=== PATIENT | female | born 2000 | race Caucasian/White ===

== ENCOUNTER 2024-09-06 17:36 | Observation (INO) | payer MEDICAID, SELFPAY ==
--- NOTE | 2024-09-06 17:43 | XR_ITS ---
Examination: Complete OB ultrasound greater than 14 weeks Date and time of exam: September 06, 2024 1745 hrs. Indications: Labor evaluation, size dates discrepancy Findings: Viable intrauterine single fetus with single amniotic sac presentation cephalic Cardiac motion 136 BPM Placenta anterior grade 2 Umbilical cord insertion seen Amniotic fluid index 9.7 cm Cervix 3.2 cm Ovaries obscured by bowel gas. Composite estimated gestational age based on BPD, head circumference, abdominal circumference, femur length is 33 weeks 6 days Estimated weight 2271.8 g. Survey of intracranial anatomy, spinal anatomy, abdominal anatomy, four-chamber heart performed with no abnormalities identified. Impression: Viable intrauterine gestation 33 weeks 6 days Estimated weight 2271.8 g.
[2024-09-06 17:59] VITALS: BMI 33.1
[2024-09-06 18:37] VITALS: BP 116/65; PULSE 80
== END 2024-09-06 19:57 | disposition home or self-care (01) ==
PROVIDERS: Admitting Provider Nurse Practitioner Women's Health; PCP Physician Assistant; Visit Provider Obstetrics & Gynecology
DX: Z34.03 Encounter for supervision of normal first pregnancy, third trimester (principal); Z3A.36 36 weeks gestation of pregnancy
CPT/HCPCS: 59025; 59899; 76805

== ENCOUNTER 2024-10-03 07:11 | Inpatient (IN) | payer MEDICAID, SELFPAY ==
[2024-10-03] VITALS (203 sets, daily range): BP systolic 107–159; BP diastolic 56–98; PULSE 77–115; RESP 15–98; TEMP 36.4–38.5; O2SAT 91–100; BMI 35.5
[2024-10-03 07:59] LABS: ROM Kit Lot # 57805053; ROM Swab Mixed By: LOEFL; Rupture of Fetal Membranes Positive (Negative); Swb Mxed in Solvent 1 min? Yes
[2024-10-03 09:02] LABS: Collection Type, Urine Clean Catch
[2024-10-03 09:18] LABS: Basophils % (Auto) 0 % (0-2.5); Eosinophils # (Auto) 0.1 Thou/mm3 (0.0-0.5); Eosinophils % (Auto) 1 % (0-10); Hematocrit 36.2 % (36.0-46.0); Hemoglobin 12.8 g/dL (12.0-16.0); Immature Granulocytes % (Auto) 0 % (0-0); Immature Granulocytes Auto 0.04 Thou/mm3 (0.00-0.00); Lymphocytes # (Auto) 1.7 Thou/mm3 (1.0-4.8); Lymphocytes % (Auto) 15 % (10-50); Mean Corpuscular HGB Conc 35.4 g/dl (31.0-37.0); Mean Corpuscular Hemoglobin 30.5 pg (25.0-35.0); Mean Corpuscular Volume 86 fL (80-100); Monocytes % (Auto) 8 % (0-12); Neutrophils # (Auto) 8.7 Thou/mm3 (1.8-7.7); Neutrophils % (Auto) 76 % (37-80); Nucleated Red Blood Cell % 0 /100 WBC (0); Platelet Count 264 Thou/mm3 (140-440); RDW Standard Deviation 41.3 fL (36.4-46.3); White Blood Count 11.5 Thou/mm3 (3.6-11.0)
[2024-10-03 09:49] LABS: Alanine Aminotransferase 9 U/L (10-49); Albumin, Serum 4.2 gm/dL (3.5-5.0); Albumin/Globulin Ratio 1.5 (1.2-2.2); Alkaline Phosphatase 190 U/L (46-116); Anion Gap 9 (7-16); Aspartate Amino Transferase 14 U/L (0-34); BUN/Creatinine Ratio 18 Ratio (12-20); Bilirubin,Total 0.3 mg/dL (0.3-1.2); Blood Urea Nitrogen 9 mg/dL (9-23); Calcium 9.2 mg/dL (8.3-10.6); Calcium (Corrected) 9.2 mg/dL (8.5-10.1); Carbon Dioxide 22.8 mMol/L (20.0-31.0); Chloride 102 mMol/L (98-107); Creatinine (Component) 0.5 mg/dL (0.6-1.3); Estimated Creatinine Clearance 196.1 mL/min (>60); Globulin 2.8 gm/dL (2.3-3.5); Glucose 94 mg/dL (74-106); Osmolality,Calculated 266 (275-295); Potassium 3.8 mMol/L (3.4-5.1); Sodium 134 mMol/L (136-145); Uric Acid 5.9 mg/dL (3.1-7.8); eGFR > 60 See Note
[2024-10-03 09:54] LABS: Syphilis Nonreactive (Nonreactive)
[2024-10-03 10:01] LABS: INR 0.9 (0.9-1.3); Partial Thromboplastin Time 22.9 Seconds (22.0-36.0)
[2024-10-03 10:10] LABS: Fibrinogen 737 mg/dL (175-375)
[2024-10-03] MEDS: RINGERS LACTATED 1000 ML 1,000 ML 125 ML IV ×5 (10:20→21:52)
[2024-10-03 12:38] LABS: Amphetamine/Metham Scrn,Ur OB Negative (Negative); Benzoylecgonine Screen, Ur OB Negative (Negative); Opiate Screen,Urine OB Negative (Negative); THC Screen,Urine OB Negative (Negative)
--- NOTE | 2024-10-03 12:45 | ESHP_ITS ---
Documentation for date of: 10/03/24 OB Labor/Induct. HPI History of Present Illness Chief complaint: 24 y/o 40w 2d presents to L&D in early labor with SROM : 1 Para: 0 Term pregnancies: 0 pregnancies: 0 Living children: 0 History of Abortions: Spontaneous and Elective: 0 History of Vaginal deliveries: 0 History of sections: No BHAVIN: 10/01/24 Gestational Age (weeks): 40 Gestational Age (days): 2 History of present illness: 24 y/o 40w 2d presents to L&D in early labor with SROM, cervix is 2/80/-3 vertex, category 1 tracing. Amnisure is +. GBS is neg. Pt was admitted for rupture membranes. Pt has been uncomplicated. EFW 3000g History of Present Dating criteria: LMP confirmed by 1st trimester US Adequate Care: Yes Ultrasounds: normal 1st trimester US and normal mid trimester US Obstetrical complications: none Medical complications: none Labs Maternal Blood Type: O Pos Labs: Positive: Rubella Titre, Negative: RPR, Hepatitis B, HIV, Chlamydia, Gonorrhea and Group Beta Strep and Unknown: Herpes Type 1, Herpes Type 2 and Covid-19 Review of Systems Review of Systems Systems Reviewed: All systems reviewed, normal except as documented Past Medical History Surgical History SURGICAL: Negative Section Meds Home Medications and Allergies Home Medications ?Medication ?Instructions ?Recorded ?Confirmed ?Type folic acid 1 mg tablet 1 mg PO QDAY 09/06/24 10/03/24 History vit no.95-ferrous 1 tab PO QDAY 09/06/24 10/03/24 History fumarate 28 mg-folic acid 800 mcg tablet () Allergies Allergy/AdvReac Type Severity Reaction Status Date / Time No Known Drug Allergies Allergy Verified 10/03/24 09:45 OB Exam Physical Exam Vital signs: Temp Pulse Resp BP Pulse Ox 97.7 F 85 20 130/74 98 10/03/24 08:05 10/03/24 12:20 10/03/24 08:05 10/03/24 12:20 10/03/24 12:41 Constitutional Constitutional: no acute distress Routine HEENT Exam Head: Present normocephalic and atraumatic Eye: Present EOMI, PERRL and normal accommodation ENT: Present mucous membranes moist Routine Neck Exam Neck: Present supple, full ROM and trachea midline Routine Cardiovascular Exam Cardiovascular: Present RRR Routine Abdominal Exam Abdominal: Present soft and normoactive bowel sounds Comments: Gravid Uterus EFW 3000g Routine Exam External: Present normal urethra appearance; Absent lesions Detailed Labor and Delivery Exam Dilation (cm): 2 Effacement (%): 80 Cervix position: mid station: -2 Consistency: soft Presentation: Vertex Membranes: ruptured (SROM) Amniotic fluid: clear Baseline heart rate: 130 monitor accelerations: 15x15 monitor decelerations: None nursing home variability: Moderate (11-25) Contraction frequency (min): 2-3 Contraction intensity: Moderate Routine Extremities Exam Extremities: Present full ROM Routine Back/Spine/Pelvis Exam Back/Spine: Present full ROM Routine Skin Exam Skin: Present intact, dry and warm Routine Neurological Exam Neurological: Present alert, oriented X3 and CN II-XII intact Routine Psychiatric Exam Psychiatric: Present normal affect and normal thought process OB Results Labs 10/03/24 08:40 10/03/24 08:40 Labs: Short CBC 10/03/24 Range/Units 08:40 WBC 11.5 H (3.6-11.0) Thou/mm3 Hgb 12.8 (12.0-16.0) g/dL Hct 36.2 (36.0-46.0) % Plt Count 264 (140-440) Thou/mm3 BMP 10/03/24 08:40 Sodium 134 L Potassium 3.8 Chloride 102 Carbon Dioxide 22.8 BUN 9 Creatinine 0.5 L Glucose 94 Calcium 9.2 Liver Function 10/03/24 Range/Units 08:40 Total Bilirubin 0.3 (0.3-1.2) mg/dL AST 14 (0-34) U/L ALT 9 L (10-49) U/L Alkaline Phosphatase 190 H (46-116) U/L Albumin 4.2 (3.5-5.0) gm/dL OB Assessment & Plan Assessment and Plan (1) Normal labor: Status: Acute (2) Normal first in third trimester: Status: Acute (3) 40 weeks gestation of : Status: Acute Additional Plan Induction method: none Plan: augmentation, anticipate NVD and consult MD seaman Additional Plan Comment: Routine admit orders Consult anesthesia for an epidural Continuous EFM
[2024-10-03 12:55] LABS: Bilirubin,Urine Negative (Negative); Blood,Urine 1+ (Negative); Clarity,Urine Clear (Clear/Hazy); Color,Urine Colorless (Lt Yel-Yel); Glucose, Urine Negative (Negative); Ketones,Urine Negative (Negative); Leukocyte Esterase,Urine Negative (Negative); Nitrite,Urine Negative (Negative); PH,Urine 6.5 (5.0-7.0); Protein,Urine Negative (Neg - Trace); RBC,Urine 1 /hpf (0-3); Specific Gravity,Urine 1.007 (1.001-1.035); Squamous Epithelial Cell,Urine 3 /hpf (0-5); Urobilinogen,Urine Negative mg/dL (0.0-1.0); WBC,Urine 1 /hpf (0-5)
[2024-10-03] MEDS: Ampicillin Inj 2,000 MG in SODIUM CHLORIDE 0.9% (P) 100 ML 200 MG IV (17:00)
--- NOTE | 2024-10-03 19:12 | ESPR_ITS ---
<Statement entered by Blank Weaver MD - 10/04/24 07:31> Patient with diagnosis of chorioamnionitis, receiving IV ampicillin already. Recommended to add gentamycin 5mg/kg IV x1 in addition. FHRT evaluated and Cat I-Cat II. Patient progressing well. Safe to proceed. Blank Weaver MD Documentation for date of: 10/03/24 OB Labor Progress Note Pain Control Pain control: epidural Pelvic Exam Dilation (cm): 7 Effacement (%): 90 station: 0 Amniotic membrane status: Ruptured Contractions Monitor mode: External Contraction frequency: 1-3 Contraction duration: 40-60 Contraction phase: Contraction Contraction intensity: Moderate Status status: Category l Assessment and Plan Assessment: active labor Plan OB labor note: continuous present management Comments: Comfortable with epidural Temp of 101.3 start IV tylenol x1 Add Gentamycin Continue Abx Anticipate Dr. Weaver updated
[2024-10-03] MEDS: ACETAMINOPHEN IVPB 1,000 MG/100 ML VIAL 250 MG IV (19:32)
[2024-10-03] MEDS: Ampicillin Inj 1,000 MG in SODIUM CHLORIDE 0.9% (P) 50 ML 100 MG IV (22:40)
[2024-10-04] VITALS (63 sets, daily range): BP systolic 126–180; BP diastolic 68–104; PULSE 68–173; RESP 16–19; TEMP 36.6–37.7; O2SAT 86–100
[2024-10-04] MEDS: MINERAL OIL 30 ML UDC TOP (01:50)
[2024-10-04] MEDS: BENZO/LANO/ALOE (Dermoplast) 60 GM CAN 1 SPRAY TOP (02:00)
[2024-10-04] MEDS: OXYTOCIN in NS 20 units 20 UNIT/1,000 ML BAG 125 UNIT IV (02:00)
--- NOTE | 2024-10-04 02:14 | PD.LDDS ---
DS: Providers Provider Date of admission: 10/03/24 08:39 Primary care physician: Physician No Primary/Family Admitting Provider: Lulu Caldera CNM Attending Provider on Admission: Blank Weaver MD Attending Provider on DC: Lulu Caldera CNM Discharging Provider: Lulu Caldera CNM Anticipated date of discharge: 10/05/24 DS: Diagnosis Discharge Diagnosis (1) Normal spontaneous vaginal delivery: Status: Acute (2) Encounter for care of lactating mother: Status: Acute (3) Normal labor: Status: Acute (4) 40 weeks gestation of : Status: Acute (5) Normal first in third trimester: Status: Acute Problem List Completed Was Problem List Reviewed/Reconciled?: Yes Summary/Hosp Course Brief History: 24 y/o 40w 2d presents to L&D in early labor with SROM, cervix is 2/80/-3 vertex, category 1 tracing. Amnisure is +. GBS is neg. Pt was admitted for rupture membranes. Pt has been uncomplicated. EFW 3000g 10/04/24: Patient pushed for about an hour and head delivered with a tight nuchal cord which was reduced infant was also in compound presentation with the left posterior arm delivered first and patient took about 2 minutes to push the rest of the baby's body out. Infant placed on mother's abdomen. Cord was clamped and then cut by MELISSA and infant immediately moved to the warmer to be assessed by the NICU team. Cry was heard after stimulation. Infant was transferred to the NICU for observation. Placenta expelled spontaneously and intact. Patient sustained a right labial tear. Repaired using a 3-[address] suture. Perineum intact. Excellent hemostasis achieved after vigorous fundal massage and removal of clots from the posterior fornix. EBL is 300. stable in NICU and mother is stable and recovering in LDR. 10/05/24: day 1. Patient is stable and afebrile and doing well. Ambulating with no problems voiding with no problems passing gas and has had 2 bowel movements. No complaints. Uterus is nontender fundus firm minimal lochia. Discharge instructions given patient to follow-up with Lulu Caldera CNM in 3 weeks Peripartum Data Delivery Method: Normal Vaginal Delivery Episiotomy Description: None Laceration Description: yes and see Delivery Summary complications: none 1: Gender: Female Disposition of : home Status at Discharge Cognitive/behavioral status at discharge: Alert and oriented x 3 Time Spent with Patient Time attestation: Total time spent providing and/or coordinating discharge services: Time spent: Greater than 30 minutes Exam Vital Signs Temp Pulse Resp BP Pulse Ox 99.8 F 98 17 180/104 H 100 10/04/24 00:14 10/04/24 01:21 10/04/24 00:14 10/04/24 01:21 10/04/24 02:11 Constitutional Constitutional: no acute distress Routine HEENT Exam Head: Present normocephalic and atraumatic Eye: Present EOMI, PERRL and normal accommodation ENT: Present mucous membranes moist Routine Neck Exam Neck: Present supple, full ROM and trachea midline Routine Respiratory Exam Respiratory: Present chest non-tender, lungs clear, normal breath sounds and no resp distress Routine Cardiovascular Exam Cardiovascular: Present RRR Routine Abdominal Exam Abdominal: Present soft and normoactive bowel sounds; Absent tenderness or distended Comments: Uterus nontender fundus firm Routine Exam Patient deferred: external exam Routine Extremities Exam Extremities: Present full ROM Routine Back/Spine/Pelvis Exam Back/Spine: Present full ROM Routine Skin Exam Skin: Present intact, dry and warm Routine Neurological Exam Neurological: Present alert, oriented X3 and CN II-XII intact Routine Psychiatric Exam Psychiatric: Present normal affect and normal thought process Discharge Plan Plan Patient Disposition: HOME (Self Care) Patient condition on transfer: Stable Prescriptions/Referrals Prescriptions/Med Rec: New ibuprofen 800 mg tablet 800 mg PO Q6H MDD 4 PRN (Reason: pain) Qty: 120 0RF docusate sodium [Colace] 100 mg capsule 100 mg PO BID Qty: 60 0RF lanolin 50 % ointment 1 applic topical TID PRN (Reason: skin irritation) Qty: 15 0RF Continued folic acid 1 mg tablet 1 mg PO QDAY Patient Comments: TAKE 1 TABLET BY MOUTH EVERY DAY PNV cmb#95-ferrous fumarate-FA [] 28 mg iron- 800 mcg tablet 1 tab PO QDAY Patient Comments: TAKE 1 TABLET BY MOUTH EVERY DAY Referrals: No Primary/Family,Physician [Primary Care Provider] - Patient/Caregiver Discharge Instructions Meds to Beds: No Discharge Activity: activity as tolerated Other Discharge Activity Instructions:: Follow-up with Lulu Caldera CNM in 3 weeks Education Materials: After a Vaginal , After Delivery [place] Concerns, : Caring for Yourself Print Language: Faroese Stand Alone Forms: Jackeline Award Info., Patient Portal Info Letter Discharge Order Discharge Orders: Discharge (Routine); Ordered 10/05/24 Ordered By: Lulu Caldera Planned Discharge Date 10/05/24
--- NOTE | 2024-10-04 02:36 | OBDSUM_ITS ---
Data ([place]) Data Hx Section: No Maternal Blood Type: O Pos Rubella Titre: Positive RPR: Non-reactive Labs: Negative: RPR, Hepatitis B, HIV, Chlamydia, Gonorrhea and Group Beta Strep and Unknown: Herpes Type 1 and Herpes Type 2 : 1 Para: 0 Term: 0 : 0 Livin : 0 Delivery Data ([place]) Labor Data Stimulated/Augmented: No Induction: No ROM Date: 10/02/24 ROM Time: 15:30 Rupture Type: SROM Amniotic Fluid: Clear Delivery Data EDC: 10/01/24 EDC calculated by:: LMP/early US confirmation Labor Onset Stage 1 Date: 10/03/24 Labor Onset Stage 1 Time: 19:09 Labor Onset Stage 2 Date: 10/04/24 Labor Onset Stage 2 Time: 01:17 Delivery Date: 10/04/24 Delivery Time: 01:56 Gestational age (weeks): 40 Gestational age (days): 3 Placenta Delivery Date: 10/04/24 Placenta Delivery Time: 02:00 Delivered by: Lulu Caldera Delivery nurse: Henry Zepeda [employer] at delivery: No Support person(s) at delivery: FOB Other staff at delivery: Nursery Nurse Other staff at delivery: Nursery Nurse Other staff at delivery: 2nd Nurse Other staff at delivery: Mariaelena Mccarthy Other staff at delivery: Estrella Segundo Other staff at delivery: FRANCIS RICK Delivery Method Delivery: Vaginal Delivery Type: Spontaneous Presentation: Compound Position: OA Anesthesia Type Primary Anesthesia: Epidural Delivery Room Medications Intrapartum Medications: Antibiotics Other Intrapartum Medications: Yes Post Delivery Medications N/A: No Placenta Placenta Delivery: Spontaneous Placenta Cultures Obtained: No Placenta Sent for Examination: No Cord Sample: Cord Blood Obtained Episiotomy Episiotomy: None Lacerations #1: Labial: Right labial Perineal repair Sutures used for repair: 3.0 Vicryl (CT) EBL Estimated blood loss (ml): 300 Umbilical Cord Umbilical Vessels: 3 Nuchal Cord: x1 Body Cord: Not Applicable Additional Procedures Patient pushed for about an hour and head delivered with a tight nuchal cord which was reduced infant was also in compound presentation with the left posterior arm delivered first and patient took about 2 minutes to push the rest of the baby's body out. Infant placed on mother's abdomen. Cord was clamped and then cut by CNM and immediately moved to the warmer to be assessed by the NICU team. Cry was heard after stimulation. Infant was transferred to the NICU for observation. Placenta expelled spontaneously and intact. Patient sustained a right labial tear. Repaired using a 3-[address] suture. Perineum intact. Excellent hemostasis achieved after vigorous fundal massage and removal of clots from the posterior fornix. EBL is 300. stable in NICU and mother is stable and recovering in LDR. Data ([place]) [place] Data Gender: Female Weight Grams: 3670 1 Minute Total: 2 5 Minute Total: 7
[2024-10-04] MEDS: IBUPROFEN TAB 400 MG TABLET 800 MG PO ×2 (03:46→17:23)
[2024-10-04 08:11] LABS: Basophils % (Auto) 0 % (0-2.5); Eosinophils % (Auto) 0 % (0-10); Hematocrit 28.5 % (36.0-46.0); Hemoglobin 10.1 g/dL (12.0-16.0); Immature Granulocytes % (Auto) 1 % (0-0); Immature Granulocytes Auto 0.07 Thou/mm3 (0.00-0.00); Lymphocytes # (Auto) 1.2 Thou/mm3 (1.0-4.8); Lymphocytes % (Auto) 8 % (10-50); Mean Corpuscular HGB Conc 35.4 g/dl (31.0-37.0); Mean Corpuscular Hemoglobin 30.9 pg (25.0-35.0); Mean Corpuscular Volume 87 fL (80-100); Monocytes # (Auto) 1.2 Thou/mm3 (0.0-0.8); Monocytes % (Auto) 8 % (0-12); Neutrophils % (Auto) 83 % (37-80); Nucleated Red Blood Cell % 0 /100 WBC (0); Platelet Count 234 Thou/mm3 (140-440); RDW Standard Deviation 42.5 fL (36.4-46.3); Red Blood Count 3.27 Miln/mm3 (4.00-5.20); White Blood Count 15.5 Thou/mm3 (3.6-11.0)
[2024-10-04] MEDS: DOCUSATE SOD 100 MG CAPSULE PO (09:32)
[2024-10-04] MEDS: ACETAMINOPHEN 325 MG TABLET 650 MG PO (21:23)
[2024-10-05] VITALS: BP 137/82; PULSE 71; RESP 18; TEMP 36.6; O2SAT 98
[2024-10-05] MEDS: IBUPROFEN TAB 400 MG TABLET 800 MG PO (06:04)
[2024-10-05 07:30] VITALS: BP 130/83; PULSE 82; RESP 16; TEMP 36.3; O2SAT 98
[2024-10-05] MEDS: DOCUSATE SOD 100 MG CAPSULE PO (09:24)
--- NOTE | 2024-10-05 11:39 | PC.SS ---
FARM APPRAISER conducted bedside contact with the patient to address nursing referral indicating patient possessed history of THC use. Present with patient at bedside was FOB, Aron Hartmann. Patient gave permission for FOB to be present during discussion. FARM APPRAISER introduced self, role and basis of referral. Patient confirmed use of THC prior to confirmation. Upon confirmation patient ceased use of THC. Patient does not plan on utilizing THC upon discharge. Toxicology screen was negative. Welaka, Gabby; is the patient?s first child. Welaka delivered naturally. OB services conducted with Lulu Caldera. Patient consistent with OB appointments. Patient resides with FOB. Patient is aligned with [facility] and [facility]. Patient is not receiving TANF. Patient denies history of alcohol/drug abuse. Patient denies CWS intervention. Patient denies episodes of domestic violence. Patient denies possessing a history of mental health, reports no current possession of depression or anxiety. Patient plans on bottle feeding the . Patient has access to appropriate supplies and equipment; to include a car seat. FOB will provide transportation upon discharge. Patient describes possessing support system consisting of FOB and extended family. FARM APPRAISER provided the patient with community resources to include [facility] and Warm Line. No further intervention required at this time, executive secretary social welfare will be available to address any further concerns. FARM APPRAISER updated bedside nurse.
[2024-10-05 12:05] VITALS: BP 124/82; PULSE 56; RESP 18; TEMP 36.5; O2SAT 97
== END 2024-10-05 13:16 | disposition home or self-care (01) | DRG 560 ==
LOC: S4NX 10-04 06:10 → S4SX 10-04 06:10
PROVIDERS: Admitting Provider Nurse Practitioner Women's Health; Visit Provider Obstetrics & Gynecology
DX: O42.02 Full-term premature rupture of membranes, onset of labor within 24 hours of rupture (principal); O48.0 Post-term pregnancy; O32.6XX0 Maternal care for compound presentation, not applicable or unspecified; O69.1XX0 Labor and delivery complicated by cord around neck, with compression, not applicable or unspecified; O70.0 First degree perineal laceration during delivery; Z37.0 Single live birth; Z3A.40 40 weeks gestation of pregnancy
CPT/HCPCS: 36415; 59025; 59409; 80053; 80307; 81001; 84112; 84550; 85025; 85384; 85610; 85730; 86780; 86850; 86900; 86901; 94762; J0131; J0290; J1580; J2590; J7050; J7120; A9270